=== PATIENT | male | born 1980 | race Caucasian/White ===

== ENCOUNTER 2017-01-22 01:07 | Emergency (ER) | payer OTHER ==
[2017-01-22 02:12] LABS: CARBON DIOXIDE 29.8 mmol/L (21-32); CHLORIDE SERUM 102 mmol/L (98-107); CREATININE SERUM 0.7 mg/dL (0.7-1.3); GFR1 > 60 mL/min; GLUCOSE SERUM 163 mg/dL (74-106); POTASSIUM SERUM 4.1 mmol/L (3.5-5.1); SODIUM SERUM 139 mmol/L (136-145)
[2017-01-22 02:16] LABS: ALKALINE PHOSPHATASE 158 U/L (46-116); ALT/SGPT 65 U/L (16-63); AST/SGOT 72 U/L (15-37); BILIRUBIN TOTAL 0.29 mg/dL (0.20-1.00); TOTAL PROTEIN, SERUM 7.6 g/dL (6.4-8.2)
[2017-01-22 02:19] LABS: ALBUMIN 3.1 g/dL (3.4-5.0)
[2017-01-22 02:20] LABS: BASOPHIL % 0.5 % (0-2); PLATELET COUNT 205 x10^3mcL (130-400)
[2017-01-22 02:39] LABS: CK-MB < 0.5 ng/mL (0-3.6); CREATINE KINASE 104 U/L (39-308)
[2017-01-22 03:09] VITALS: BP 127/84
== END 2017-01-22 03:09 | disposition home or self-care (01) ==
LOC: ED 01:07
PROVIDERS: Emergency Medicine
DX: F10.10 Alcohol abuse, uncomplicated (principal); M79.1 Myalgia; E78.00 Pure hypercholesterolemia, unspecified; I10 Essential (primary) hypertension; E11.9 Type 2 diabetes mellitus without complications
CPT/HCPCS: G0480; Q0092

== ENCOUNTER 2017-04-01 08:17 | Emergency (ER) | payer OTHER ==
[~2017-04-01] VITALS: Ht 180.3 cm; Wt 164.2 kg
[2017-04-01 09:28] VITALS: BP 150/95
== END 2017-04-01 09:28 | disposition home or self-care (01) ==
LOC: ED 08:17
DX: F10.20 Alcohol dependence, uncomplicated (principal); E11.9 Type 2 diabetes mellitus without complications; E78.00 Pure hypercholesterolemia, unspecified; F12.10 Cannabis abuse, uncomplicated; E66.01 Morbid (severe) obesity due to excess calories; F25.9 Schizoaffective disorder, unspecified
CPT/HCPCS: 82962

== ENCOUNTER 2017-04-17 20:28 | Emergency (ER) | payer MEDICAID ==
[2017-04-17 20:52] LABS: BASOPHIL % 0.9 % (0-2); PLATELET COUNT 327 x10^3mcL (130-400); RED CELL DISTRIBUTION WIDTH 13.9 % (11.5-14.5)
[2017-04-17 21:00] LABS: CALCIUM 8.1 mg/dL (8.5-10.1); CARBON DIOXIDE 23.5 mmol/L (21-32); CHLORIDE SERUM 100 mmol/L (98-107); CREATININE SERUM 0.6 mg/dL (0.7-1.3); GFR1 > 60 mL/min; GLUCOSE SERUM 201 mg/dL (74-106); POTASSIUM SERUM 3.4 mmol/L (3.5-5.1); SODIUM SERUM 136 mmol/L (136-145)
[2017-04-17 21:05] LABS: ALKALINE PHOSPHATASE 178 U/L (46-116); ALT/SGPT 105 U/L (16-63); AMYLASE 42 U/L (25-115); AST/SGOT 140 U/L (15-37); BILIRUBIN TOTAL 0.5 mg/dL (0.20-1.00); LIPASE 415 IU/L (73-393); TOTAL PROTEIN, SERUM 7.5 g/dL (6.4-8.2)
[2017-04-17 21:18] LABS: ALBUMIN 2.8 g/dL (3.4-5.0)
[2017-04-17 21:37] LABS: CK-MB 0.6 ng/mL (0-3.6)
[2017-04-18 01:55] VITALS: BP 133/85
== END 2017-04-18 01:50 | disposition home or self-care (01) ==
LOC: ED 20:28
PROVIDERS: Emergency Medicine
DX: F10.129 Alcohol abuse with intoxication, unspecified (principal); R07.89 Other chest pain; R11.10 Vomiting, unspecified; I10 Essential (primary) hypertension; E11.9 Type 2 diabetes mellitus without complications; F99 Mental disorder, not otherwise specified; Z79.899 Other long term (current) drug therapy
CPT/HCPCS: G0480; J3411; J3475; J3490; J7030; Q0092

== ENCOUNTER 2017-07-03 11:31 | Inpatient (IN) | payer MEDICAID ==
[~2017-07-03] VITALS: Ht 180.3 cm; Wt 136.3 kg
--- NOTE | 2017-07-03 11:43 | NUR ---
PT ON 5150 HOLD, PT'S CLOTHING & BELONGINGS BAGGED UP, LABELED, & PLACED IN RADIO ROOM. PT IN VIEW OF NSG STATION ON FULL MONITORS.
--- NOTE | 2017-07-03 11:53 | NUR ---
PT BIBA FOR C/O SI WITH A PLAN AND ETOH ABUSE. PT REPORTS EXTENSIVE PSYCHIATRIC HX THAT HE IS MEDICATED FOR. PT REPORTS HIS BELONGINGS WERE STOLEN 1 MONTH AGO, WHICH INCLUDED HIS MEDICATIONS. PT HAS NOT TAKEN MEDS X 1 MONTH. PT IS "SELF MEDICATING" WITH ETOH. AT TIME OF ASSESSMENT PT VERBALIZED SI WITH PLAN TO GO INTO TRAFFIC AND GET HIT BY A TRUCK. PT IS DEMANDING BLOOD WORK TO CHECK HIS KIDNEYS AND LIVER, DEMANDING TO BE DETOXED AND SENT TO [facility], IF NOT PT STATES "I'LL GO TO THE LIQUOR STORE AND GET EVEN MORE DRUNK." PT CHANGED INTO GOWN, CONNECTED TO FULL CARDIORESP MONITORS.
[2017-07-03 12:19] LABS: CALCIUM 7.9 mg/dL (8.5-10.1); CARBON DIOXIDE 25.2 mmol/L (21-32); CHLORIDE SERUM 103 mmol/L (98-107); CREATININE SERUM 0.6 mg/dL (0.7-1.3); GFR1 > 60 mL/min; GLUCOSE SERUM 188 mg/dL (74-106); SODIUM SERUM 139 mmol/L (136-145)
[2017-07-03 12:20] LABS: BASOPHIL % 0.5 % (0-2); PLATELET COUNT 256 x10^3mcL (130-400); RED CELL DISTRIBUTION WIDTH 13.3 % (11.5-14.5)
[2017-07-03 12:23] LABS: ALKALINE PHOSPHATASE 100 U/L (46-116); ALT/SGPT 49 U/L (16-63); AST/SGOT 69 U/L (15-37); BILIRUBIN TOTAL 0.22 mg/dL (0.20-1.00)
[2017-07-03 12:24] LABS: ALBUMIN 3.2 g/dL (3.4-5.0)
--- NOTE | 2017-07-03 13:37 | NUR ---
PT SLEEPING IN BED, CONNECTED TO CARDIORESP MONITORS, IN DIRECT OBSERVATION OF NURSING STATION. WILL CONTINUE WITH PLAN OF CARE. ATTEMPTING TO GET URINE SPECIMEN AT THIS TIME.
[2017-07-03 17:00] LABS: AMPHETAMINE QUAL UR POSITIVE (NEG <=1000)
--- NOTE | 2017-07-03 18:12 | NUR ---
PT REMAINS RESTING IN A POSITION OF COMFORT IN LOW POSITIONED BED WITH SIDE RAILS UP X 2 AND CALL LIGHT WITHIN REACH. PT REMAINS IN DIRECT OBSERVATION OF THE NURSES STATION AND IS BEING CLOSELY MONITORED.
--- NOTE | 2017-07-03 19:30 | NUR ---
REPORT GIVEN TO EVA GASPAR TO ASSUME CARE OF PT.
--- NOTE | 2017-07-03 21:00 | NUR ---
PT CALM QUIET, COOPERATIVE, RESTING NO SIGN OF DISTRESS, PT STATES HE IS SUICIDAL, AND DOES HAVE A PLAN, (PLANS TO RUN IN FRONT OF A VEHICLE) HE WISHES TO BE ADMITTED TO A PSYCH FACILITY FOR FOLLOW UP CARE, PT STATES HE HAS BEEN OFF HIS MEDICATION FOR SCHIZOPHRENIA FOR SOMETIME. AWAIT ORDERS AND PLACEMENT.
[2017-07-03 21:28] LABS: CARBON DIOXIDE 27.3 mmol/L (21-32); CHLORIDE SERUM 102 mmol/L (98-107); CREATININE SERUM 0.7 mg/dL (0.7-1.3); GFR1 > 60 mL/min; GLUCOSE SERUM 169 mg/dL (74-106); POTASSIUM SERUM 3.8 mmol/L (3.5-5.1); SODIUM SERUM 134 mmol/L (136-145)
--- NOTE | 2017-07-03 22:29 | NUR ---
REPORT RECEIVED FROM DAY SHIFT RN , PT RESTING ON BED, AWAIT NEW ORDERS AND DISPO, PT CALM QUIET COOPERATIVE AT THIS TIME IN VIEW OF RN STATION, ALL BELONGINGS REMOVED FROM ROOM PT EATING NO C/O AT THIS TIME VSS. CONT TO MONITOR
--- NOTE | 2017-07-03 23:00 | NUR ---
PT RESTING CALM COOPERATIVE VSS, TAKING ORAL HYDRATION, AMBULATED TO BR STEADY GATE BACK TO BED CONT TO MONITOR
--- NOTE | 2017-07-03 23:25 | NUR ---
PT REQUESTING MORE WATER AND ATIVAN FOR HIS ETOH WITHDRAWLS, DR SHAFFER MADE AWARE.
--- NOTE | 2017-07-03 23:30 | NUR ---
PT RETURNED FROM RESTROOM WITHOUT INCIDENCE
--- NOTE | 2017-07-03 23:31 | NUR ---
PT ESCORTED TO RESTROOOM BY EMT.
--- NOTE | 2017-07-04 00:48 | NUR ---
REPORT CALLED TO FLOOR [facility] EXT [id number] PT TRANSPORTED TO ROOM 209B IN STABLE CONDITION W/ RN AND TRANSPORTER ALL QUESTIONS ASKED AND ANSWERED.
--- NOTE | 2017-07-04 01:36 | NUR ---
REC'D PT FROM ED VIA EDUARDO ACCOMPANIED BY NURSE. PT AAOX4, SPEECH CLEAR, FOLLOWS COMMANDS. ON 515 HOLD FOR SUICIDAL IDEATION WITH ACTIVE PLAN TO "JUMP INTO TRAFFIC." PT IS HOMELESS WITH HX OF SCHIZOAFFECTIVE DISORDER. REPORTS HIS BAG WAS STOLEN THREE DAYS AGO AND HASN'T BEEN ON HIS MEDICATIONS- ZYPREXA & PAROXETINE. REPORTS DRINKING TO SELF MEDICATE. DENIES AUDITORY HALLUCINATIONS BUT REPORTS "SEEING SHADOWS SOMETIMES" AND BEING "PARANOID." C/O TENSION TELLEZ 02/14. DENIED TYLENOL. REPORTS FEELING ANXIOUS. TREMORS NOTED. ATIVAN 2MG IVP GIVEN PER ORDER. VSS. TELE 4 APPLIED READING SR. DENIES CP, DIZZINESS, OR PALPITATIONS. REPORTS BLURRED VISION. NO EDEMA NOTED. DENIES RESP DISTRESS OR SOB. BREATHING EVEN/UNLABORED ON RA. DENIES ABD PAIN, TENDERNESS, OR N/V. LAST BM TODAY NORMAL. VOIDING FREELY. AMBUALTORY. SKIN INTACT. DENIES PAIN AT THIS TIME. IV TO LAC PATENT AND INFUSING NS @ 100 ML/HR, SITE WNL. PT ORIENTED TO SURROUDNINGS AND DEVICES. CALL LIGHT WITHIN REACH, BED AT LOWEST POSITION, SITTER AT BEDSIDE. WILL CONTINUE TO MONITOR.
[2017-07-04 01:43] VITALS: BP 129/72
[2017-07-04] MEDS ORDERED: ZYPREXA15 M1 PO (01:48)
[2017-07-04] MEDS ORDERED: PAXIL10 MG PO (01:49)
--- NOTE | 2017-07-04 02:09 | NUR ---
PT RESTING IN BED WITH EYES CLOSED. SNORING. SITTER AT BEDSIDE. WILL CONTINUE TO MONITOR.
[2017-07-04 02:17] LABS: microscopic required? NO
[2017-07-04 02:46] LABS: T3 TOTAL 1.05 ng/mL
[2017-07-04 02:47] LABS: CHOLESTEROL/HDL RATIO 4.3; MAGNESIUM 2.3 mg/dL (1.8-2.4)
[2017-07-04 02:59] LABS: FREE T4 1.08 ng/dL (0.76-1.46); T4(THYROXINE) 8.2 ug/dL (4.7-13.3)
[2017-07-04 03:06] LABS: AMPHETAMINE QUAL UR POSITIVE (NEG <=1000); urine erythrocyte NEGATIVE (NEGATIVE)
--- NOTE | 2017-07-04 03:40 | NUR ---
CALLED PHARMACY TO HAVE ZYPREXA VERIFIED. REPORTED THAT MAX DOSE OF ZYPREXA IS 20 MG/DAY. ORDERED DOSE IS [address] JOHNSON MADE AWARE. STATED SHE WILL CHANGE THE DOSE. NO CHANGES IN ORDERS AT THIS TIME.
[2017-07-04 03:55] VITALS: BP 119/74
[2017-07-04 06:51] LABS: BASOPHIL % 0.5 % (0-2); PLATELET COUNT 184 x10^3mcL (130-400); RED CELL DISTRIBUTION WIDTH 13.4 % (11.5-14.5)
--- NOTE | 2017-07-04 07:30 | NUR ---
PT AWAKE AND ALERT X3. DENIES AUDITORY OR VISUAL HALLUCINATIONS. COOPERATIVE. DENIES SUICIDAL IDEATION AT THIS TIME. ANSWERS QUESTIONS APPROPRIATELY. TEMP 98.1. TELE #4 SINUS RHYTHM RATE 80. RESP 18 EVEN. BREATH SOUNDS CLEAR. NO COUGH OR SOB. PULSE OX 96% RA. ABD SOFT, BOWEL TONES PRESENT. VOIDING QS. NO EDEMA. PULSES PRESENT. SCD IN PLACE. IV PATENT LAC INFUSING NORMAL SALINE 100CC/HR. ON 5150. PREPARED FOODS ASSOCIATE AT BEDSIDE. IV CONVERTED TO SALINE LOCK. PT ASSISTED TO WHEELCHAIR. TAKEN DOWN FOR CT HEAD. PREPARED FOODS ASSOCIATE IN ATTENDANCE WITH PT TO XRAY.
--- NOTE | 2017-07-04 07:40 | NUR ---
PT RETURNED TO ROOM. IVF RESUMED. ATE BREAKFAST. ICT HELP DESK TECHNICIAN AT BEDSIDE.
[2017-07-04 08:30] VITALS: BP 138/87
[2017-07-04 08:41] LABS: CALCIUM 7.9 mg/dL (8.5-10.1); CARBON DIOXIDE 29.4 mmol/L (21-32); CHLORIDE SERUM 101 mmol/L (98-107); CREATININE SERUM 0.6 mg/dL (0.7-1.3); GFR1 > 60 mL/min; GLUCOSE SERUM 137 mg/dL (74-106); POTASSIUM SERUM 3.9 mmol/L (3.5-5.1); SODIUM SERUM 136 mmol/L (136-145)
--- NOTE | 2017-07-04 08:45 | NUR ---
DR JOE AND MEDICAL TEAM IN ON ROUNDS. CHARGE AND PRIMARY NURSE PRESENT. DISCUSSED [address] SANTAMARIA TO SEE PT. PT REPORTS "FEELING SHAKEY." WILL MEDICATE ORDERED.
--- NOTE | 2017-07-04 09:15 | NUR ---
MED WITH ATIVAN 2MG IVP ORDERED.
--- NOTE | 2017-07-04 09:30 | NUR ---
PT SLEEPING. NO DISTRESS. DR BLANKENSHIP IN TO SEE PT. NPO AT THIS TIME FOR ULTRASOUND OF ABD. CONTINUE TO MONITOR FOR SAFETY.
--- NOTE | 2017-07-04 12:30 | NUR ---
MATTHEW WITH INDUSTRIAL GAS FITTER HELPER IN TO SPEAK WITH PT AND DISCUSS OPTIONS FOR CARE AFTER HOSPITALIZATION. DR SANTAMARIA HERE. REMAINS ON 5150 AT THIS TIME. REMAINS NPO FOR ABD ULTRASOUND.
--- NOTE | 2017-07-04 14:00 | NUR ---
PT SLEEPING. NO DISTRESS. PO ATIVAN HELD AT THIS TIME.
[2017-07-04 14:15] VITALS: BP 143/89
--- NOTE | 2017-07-04 16:00 | NUR ---
EIR=340BV. NO RISS COVERAGE. SNACK PROVIDED. ABD ULTRASOUND COMPLETED. DR SANTAMARIA IN TO SPEAK WITH PT.
--- NOTE | 2017-07-04 17:00 | NUR ---
PT AWAKE, C/O ANXIETY. MED WITH ATIVAN 1MG PO ORDERED. CALL LIGHT IN REACH. LANGUAGE TUTOR AT BEDSIDE. CONTINUES ON 5149.
[2017-07-04 17:23] VITALS: BP 140/87
--- NOTE | 2017-07-04 19:10 | NUR ---
REPORT WITH BEATRICE GASPARBUSINESS OFFICE TECHNICIANCORROSION ENGINEER. PT SLEEPING. NO DISTRESS. IV PATENT. EXCEPTIONAL CHILDREN TEACHER ASSISTANT AT BEDSIDE. 5150 MAINTAINED.
--- NOTE | 2017-07-04 19:24 | NUR ---
PT SEEN, ASLEEP BUT EASILY AROUSABLE, ALERT AND ORIENTED, DENIES HEADACHE OR DIZZINESS, BREATHING EVEN AND UNLABORED, NO SOB, LUNG SOUNDS CLEAR, ON ROOM AIR WITH NO RESP DISTRESS NOTED, IVF INFUSING WELL, PULSES PALPABLE, NO EDEMA NOTED, SCD TO BLE, AMBULATORY WITH STEADY GAIT, ABD ROUND AND SOFT WITH ACTIVE BS, NO BM AT THIS TIME, VOIDING FREELY, PT ON 5150 HOLD, VOICING SUICIDAL IDEATION AT TIMES, SITTER AT BEDSIDE, NO DISTRESS NOTED, WILL KEEP TO MONITOR.
--- NOTE | 2017-07-04 21:51 | NUR ---
PT REFUSED LAB DRAW TONIGHT FOR ALCOHOL LEVEL, MADE DR JOHNSON AWARE, NEXT ALCOHOL LEVEL SCHEDULED IN AM.
[2017-07-04 22:03] VITALS: BP 140/80
--- NOTE | 2017-07-05 05:13 | NUR ---
PT ASLEEP BUT EASILY AROUSABLE, SLEPT MOST OF NIGHT, IVF INFUSING WELL, MORNING BLOOD SUGAR-150 MG/DL WITH NO RISS, CALM AT THIS TIME, STILL VOICING SUICIDAL IDEATION AT TIMES, SITTER AT BEDSIDE, NO DISTRESS NOTED, WILL KEEP TO MONITOR.
[2017-07-05 05:27] VITALS: BP 125/69
--- NOTE | 2017-07-05 07:20 | NUR ---
PT RECEIVED DURING CHANGE OF SHIFT, ASLEEP BUT AROUSABLE, VOICES SUICIDAL IDEATION, TELE 4, NSR, PULSES PRESENT, NO EDEMA, LUNGS CTA ON RA, BREATHING EVEN AND UNLABORED, BOWEL SOUNDS ACTIVE, USES URINAL, AMBULATORY, SKIN WARM/DRY/INTACT, NO INDICATION OF PAIN, IV TO LAC INFUSING NS AT 100ML/HR, CALL LIGHT WITHIN REACH, APPLICATION ARCHITECT MANAGER AT BEDSIDE, WILL CONTINUE TO MONITOR.
[2017-07-05 07:30] LABS: CALCIUM 8.3 mg/dL (8.5-10.1); CARBON DIOXIDE 29.2 mmol/L (21-32); CHLORIDE SERUM 101 mmol/L (98-107); CREATININE SERUM 0.6 mg/dL (0.7-1.3); GFR1 > 60 mL/min; GLUCOSE SERUM 130 mg/dL (74-106); POTASSIUM SERUM 3.8 mmol/L (3.5-5.1); SODIUM SERUM 138 mmol/L (136-145)
--- NOTE | 2017-07-05 08:15 | NUR ---
PT REFUSED COLACE, DENIES SOB, DENIES PAIN, CALL LIGHT WITHIN REACH, STAFF MEMBER AT BEDSIDE, WILL CONTINUE TO MONITOR.
--- NOTE | 2017-07-05 09:10 | NUR ---
PT ASLEEP, NO INDICATION OF PAIN, BREATHING EVEN AND UNLABORED, STAFF MEMBER AT BEDSIDE, CALL LIGHT WITHIN REACH, WILL CONTINUE TO MONITOR.
[2017-07-05 09:14] VITALS: BP 133/87
[2017-07-05 09:53] VITALS: BP 119/65
--- NOTE | 2017-07-05 10:04 | NUR ---
PT ASLEEP, NO INDICATION OF PAIN, BREATHING EVEN AND UNLABORED, PROCESSOR GRAIN AT BEDSIDE, WILL CONTINUE TO MONITOR.
--- NOTE | 2017-07-05 12:15 | NUR ---
PT AROUSED FROM SLEEP, DENIES SOB, DENIES PAIN, CALL LIGHT WITHIN REACH, STAFF MEMBER AT BEDSIDE, WILL CONTINUE TO MONITOR.
--- NOTE | 2017-07-05 13:03 | NUR ---
PT ASLEEP, NO INDICATION OF PAIN, BREATHING EVEN AND UNLABORED, CALL LIGHT WITHIN REACH, STAFF MEMBER AT BEDSIDE, WILL CONTINUE TO MONITOR.
--- NOTE | 2017-07-05 14:28 | NUR ---
PT ASLEEP, NO INDICATION OF PAIN, BREATHING EVEN AND UNLABORED, STAFF MEMBER AT BEDSIDE, WILL CONTINUE TO MONITOR.
--- NOTE | 2017-07-05 15:04 | NUR ---
PT ASLEEP, NO INDICATION OF PAIN, BREATHING EVEN AND UNLABORED, CALL LIGHT WITHIN REACH, WILL CONTINUE TO MONITOR.
--- NOTE | 2017-07-05 16:25 | NUR ---
PT AROUSED FROM SLEEP, BS 120 NO COVERAGED NEEDED, DENIES SOB, DENIES PAIN, STAFF MEMBER AT BEDSIDE, CALL LIGHT WITHIN REACH, WILL CONTINUE TO MONTIOR.
[2017-07-05 17:14] VITALS: BP 128/81
--- NOTE | 2017-07-05 17:15 | NUR ---
PT DENIES SOB, DENIES PAIN, CALL LIGHT WITHIN REACH, WELL SITE DRILLING ENGINEER AT BEDSIDE, WILL CONTINUE TO MONITOR.
--- NOTE | 2017-07-05 18:04 | NUR ---
PT DENIES SOB, DENIES PAIN, STAFF MEMBER AT BEDSIDE TO ASSIST, CALL LIGHT WITHIN REACH, WILL ENDORSE PT TO NEXT SHIFT.
[2017-07-05 21:32] VITALS: BP 129/84
[2017-07-06 05:36] VITALS: BP 123/77
--- NOTE | 2017-07-06 06:06 | NUR ---
PT ASLEEP BUT EASILY AROUSABLE, SLEPT MOST OF NIGHT, MORNING BLOOD SUGAR-121 MG/DL WITH NO RISS, STILL VOICING SUICIDAL IDEATION AT TIMES, SITTER AT BEDSIDE, NO DISTRESS NOTED, WILL KEEP TO MONITOR.
[2017-07-06 06:09] LABS: BASOPHIL % 0.4 % (0-2); PLATELET COUNT 192 x10^3mcL (130-400); RED CELL DISTRIBUTION WIDTH 12.7 % (11.5-14.5)
--- NOTE | 2017-07-06 07:39 | NUR ---
RECEIVED PT IN BED, A/A/O X 4, CALM, COOPERATIVE. STATES THAT HE STILL HAS SUICIDAL IDEATIONS, AND THAT HE PLANS TO JUMP INTO ONCOMING TRAFFIC TO KILL HIMSELF; REMINDED HIM THAT HE IS SAFE HERE, AND TO CALL US AT ANYTIME FOR ANY HELP HE MAY NEED; SITTER BY BEDSIDE. HEART SOUNDS S1/S2, NO CHEST PAIN OR DISCOMFORT. HECTOR RADIAL AND PEDAL PULSES PRESENT, NO EDEMA, CAP REFILL < 3 SECS, SCD IN PLACE. HECTOR LUNGS CLEAR, CHEST RISING EVENLY, SPO2 96%. ABD SOFT, ROUND, NON-TENDER, NORMOACTIVE BOWEL SOUNDS X 4 QUADS, LAST BM 07/04/17. VOIDS FREELY, NO DYSURIA. AMBULATES WITHOUT GAIT OR BALANCE IMPAIRMENT. SKIN INTACT. DENIES PAIN AT THIS TIME. IV SITE AT [facility], RUNNING NS 100 ML/HR. BED IN LOW POSITION, SIDE RAILS UP X 2, CALL LIGHT WITHIN REACH. WILL CONTINUE TO MONITOR.
--- NOTE | 2017-07-06 08:57 | NUR ---
DR JOE, RESIDENTS, CHARGE NURSE, AND ASSIGNED NURSE CAME IN TO SEE PT; MD DISCUSSED CARE PLAN FOR PT TODAY; ALL QUESTIONS WERE ANSWERED; PT VERBALIZED UNDERSTANDING.
[2017-07-06 10:33] VITALS: BP 141/91
--- NOTE | 2017-07-06 10:43 | NUR ---
PT IN BED, RESTING COMFORTABLY, SITTER BY BEDSIDE. NO RESPIRATORY DISTRESS, PAIN, OR DISCOMFORT NOTED. WILL CONTINUE TO MONITOR.
[2017-07-06 11:17] VITALS: BP 108/62
--- NOTE | 2017-07-06 14:13 | NUR ---
PT IN BED, ASLEEP, SITTER BY BEDSIDE. NO RESPIRATORY DISTRESS, PAIN, OR DISCOMFORT NOTED. WILL CONTINUE TO MONITOR.
--- NOTE | 2017-07-06 15:51 | NUR ---
Initial Nutrition Assessment Dx: 5150, Suicidal ideation PMHx: Alcohol abuse and Schizoaffective disorder PSHx:None Labs: (07/05)BH,Cr:0.6L (07/05) Ca:8.3L, (07/03) LDL:124H, T bili:69H, A1C:6.9H Meds: Colace, Folic acid, Glucophage, Humulin, Phoslo, Prilosec, NS IV, Seroquel, Theragran, Vitamin B1, Zofran Diet:CCHO PO Intake: (07/04) B:100% D:100% (07/05) B:100% L:100% D:100% (07/06) B:100% Ht: 71in, 6'1" Wt: 326#, 148.32kg BMI:45.6kg/m2 (obseity, class III) IBW: 184#, 84kg %IBW: 177% UBW:320# per pt Age:36 y/o male Food Allergies:NKFA Skin:intact Hernan:21 Edema:None GI: active bowel sounds Last BM:07/05 Pt is a homeless male who was brought in by paramedics on a 5150 hold and was admitted with toxic encephalopathy secondary to alcohol intoxication, per H&P. Per progress note 07/06, US of abdomen showed Hepatosplenomegaly and fatty infiltration of the liver. Per bed huddle this morning, pt reamins on a 5150 hold and is awaiting a bed at [facility]. During visit, observed pt laying in bed eating lunch. Pt reports to having a good appetite with no c/o N/V/D/C. Pt states he eats junk food and knows he needs to eat healthier and to stop drinking. Pt says he plans on trying to exercise again. Pt declined nutrition education. Problem with: N:No V: No D: No C:No Problems with: Chewing: No Swallowing: No Current appetite: Good Recent wt change:+6# %wt change:-1.88% Vitamin/Supplement use:No Special diet at home:Pt admits to eating junk food Physical activity:No Education: Pt declined nutrition education Estimated Nutritional Needs Based on adjusted body weight 100kg Energy: 2500-3000kcal/d (25-30kcal/kg for adult maintenance) Protein: 80-100g/d (0.8-1.0g/kg for adult maintenance) Fluid:2500-3000ml/day (1 ml/kcal) or per doctor Nutrition Diagnosis 1. Obesity related to overconsumption of calories and sedentary lifestule as evidenced by BMI:45.6kg/m2 and 177% of IBW. 2. Altered nutrition labs related to endocrine dysfunction as evidenced by A1c:6.9 Intervention 1.Recommend continue with current [facility] diet. Monitor/Evaluate Goal: PO intake at least 75% of estimated needs Monitor: PO intake, Labs, GI function F/U in 7 days as low risk:07/13
--- NOTE | 2017-07-06 15:52 | NUR ---
1.Recommend continue with current [facility] diet.
--- NOTE | 2017-07-06 17:40 | NUR ---
PT IN BED, ASLEEP. NO RESPIRATORY DISTRESS, PAIN, OR DISCOMFORT NOTED. WILL ENDORSE TO NOC SHIFT.
[2017-07-06 18:02] VITALS: BP 116/76
--- NOTE | 2017-07-06 19:40 | NUR ---
PT RESTING IN BED WITH SITTER AT BEDSIDE. MEDSURG PATIENT, MO C/O CHEST PAIN AT THIS TIME. RESPIRATIONS EVEN AND UNLABORED, CTA BILAT. NO C/O SOB, PT ON ROOM AIR. PT STATES HE DOES SMOKE CIGARETTES AND DRINKS HEAVILY. SHOWED HIS HANDS WERE SHAKING SLIGHTLY. PT STATES THIS OCCURS WHEN WITHDRAWLING FROM ALCOHOL. PT DENIES HALLUCINATIONS AND NAUSEA. BOWEL SOUNDS PRESENTS X4 QUADRANTS, ABD ROUND AND NONDISTENDED. HEP LOCK TO LAC, DENIES PAIN TO SITE AT THIS TIME AND SITE IS PATENT. PT STATES HE DOES THINK ABOUT KILLING HIMSELF D/T NOT DRINKING AND BEING STUCK IN THE HOSPITAL. PT STATES THAT HE WILL BE BETTER WHEN TRANSFERRED TO PSYCH FACILITY THAT HE IS USE TO. PT C/O TOOTHACHE PAIN, WILL MEDICATE PER ORDER. BED IN LOWEST POSITION, CALL LIGHT WITH SITTER, WILL CONTINUE TO MONITOR.
[2017-07-06 21:00] VITALS: BP 109/63
--- NOTE | 2017-07-06 21:25 | NUR ---
PT RESTING IN BED WITH SITTING AT BEDSIDE. MEDSURG PATIENT, NO C/O CHEST PAIN AT THIS TIME. RESPIRATIONS EVEN AND UNLABORED. NO C/O SOB, ROOM AIR, PT STATES HE IS A SMOKER. PT STATES HE DRINKS ALOT, SHOWED HIS HANDS WERE SHAKING SLIGHTLY. STATES THIS FEELING OCCURS WHEN WITHDRAWLING FROM ALCOHOL. HEP LOCK TO LAC. DENIES PAIN AT THIS TIME AND REMAINS PATENT. PT STATES HE DOES THINK ABOUT KILLING SELF D/T NOT HAVING DRANK IN A WHILE AND BEING STUCK IN THE HOSPITAL. PT STATES THAT HE WILL BE BETTER WHEN TRANSFERRED TO PSYCH FACILITY. C/O TOOTHACHE, WILL MEDICATE PER ORDER. BED IN LOWEST POSITION, WILL CONTINUE TO MONITOR.
--- NOTE | 2017-07-06 22:40 | NUR ---
PT SLEEPING IN BED, SITTER AT BEDSIDE. RESPIRATIONS EVEN AND UNLABORED. CALL LIGHT WITHIN REACH, BED IN LOWEST POSITION. WILL CONTINUE TO MONITOR.
--- NOTE | 2017-07-06 22:55 | NUR ---
PT MEDICATED WITH TYLENOL 650MG PO FOR TOOTHACHE PAIN, PT STATED PAIN WAS 7/10 PRIOR TO MEDICATION. UPON REASSESSMENT, PT WAS SLEEP IN BED. NO SIGNS OF FACIAL GRIMACING. PT WOKE UP BREIFLY, AND DID NOT STATE ANY PAIN WAS PRESENT. WILL CONTINUE TO MONITOR.
--- NOTE | 2017-07-07 02:00 | NUR ---
PT SLEEPING IN BED WITH FEW INTERRUPTIONS, SITTER AT BEDSIDE PER 510/50 HOLD. RESPIRATIONS EVEN AND UNLABORED. BED IN LOWEST POSITIONS, SIDE RAILS UP X2, CALL LIGHT NEAR SITTER, WILL CONTINUE TO MONITOR.
--- NOTE | 2017-07-07 05:01 | NUR ---
PT SLEEPING IN BED, MORNING LABS WERE DRAWN, PT WAS EASY TO AROUSE AND A&OX4. PT STATED TO PICCOLOIST HE FEELS HE IS PROBABLY READY TO GO HOME. RESPIRATIONS EVEN AND UNLABORED, NO C/O PAIN AT THIS TIME. BED IN LOWEST POSITION, CALL LIGHT NEAR SITTER, WILL CONTINUE TO MONITOR.
[2017-07-07 05:18] VITALS: BP 111/70
[2017-07-07 06:17] LABS: BASOPHIL % 0.6 % (0-2); PLATELET COUNT 209 x10^3mcL (130-400)
[2017-07-07 06:32] LABS: CALCIUM 8.8 mg/dL (8.5-10.1); CHLORIDE SERUM 100 mmol/L (98-107); CREATININE SERUM 0.7 mg/dL (0.7-1.3); GFR1 > 60 mL/min; GLUCOSE SERUM 114 mg/dL (74-106); MAGNESIUM 2.2 mg/dL (1.8-2.4); PHOSPHOROUS 5.3 mg/dL (2.5-4.9); POTASSIUM SERUM 3.8 mmol/L (3.5-5.1); SODIUM SERUM 137 mmol/L (136-145)
--- NOTE | 2017-07-07 07:42 | NUR ---
RECEIVED PT IN BED, A/A/O X 4, CALM, COOPERATIVE; PT STATES THAT HE STILL HAS SUICIDAL IDEATIONS, AND STILL THINKS ABOUT JUMPING INTO TRAFFIC TO KILL HIMSELF. HEART SOUNDS S1/S2, DENIES CHEST PAIN OR DISCOMFORT. HECTOR RADIAL AND PEDAL PULSES PRESENT, NO EDEMA, CAP REFILL < 3 SECS, SCD IN PLACE. HECTOR LUNGS CLEAR, CHEST RISING EVENLY, ON R/A, SPO2 96%. ABD SOFT, ROUND, NON-TENDER, NORMOACTIVE BOWEL SOUNDS X 4 QUADS. VOIDS FREELY, NO DYSURIA. AMBULATES WITHOUT GAIT OR BALANCE IMPAIRMENT. SKIN INTACT. DENIES PAIN AT THIS TIME. IV SITE AT [facility], SALINE-LOCKED. SIDE RAILS UP X 2, BED IN LOW POSITION, CALL LIGHT WITHIN REACH. WILL CONTINUE TO MONITOR.
--- NOTE | 2017-07-07 09:36 | NUR ---
DR EVANS, RESIDENTS, CHARGE NURSE, AND ASSIGNED NURSE CAME IN TO SEE PT; MD DISCUSSED CARE PLAN FOR PT TODAY; ALL QUESTIONS WERE ANSWERED; PT VERBALIZED UNDERSTANDING.
[2017-07-07 10:08] VITALS: BP 118/71
--- NOTE | 2017-07-07 10:53 | NUR ---
PT IN BED, RESTING COMFORTABLY. NO RESPIRATORY DISTRESS, PAIN, OR DISCOMFORT NOTED. WILL CONTINUE TO MONITOR.
--- NOTE | 2017-07-07 13:00 | NUR ---
PT IN BED, RESTING COMFORTABLY, SITTER BY BEDSIDE. NO RESPIRATORY DISTRESS, PAIN, OR DISCOMFORT NOTED. WILL CONTINUE TO MONITOR.
--- NOTE | 2017-07-07 15:00 | NUR ---
PT IN BED, WATCHING TV, SITTER BY BEDSIDE. NO RESPIRATORY DISTRESS, PAIN, OR DISCOMFORT NOTED. WILL CONTINUE TO MONITOR.
[2017-07-07 17:05] VITALS: BP 120/83
--- NOTE | 2017-07-07 17:45 | NUR ---
PT IN BED, RESTING COMFORTABLY. NO RESPIRATORY DISTRESS, PAIN, OR DISCOMFORT NOTED. WILL ENDORSE TO NOC SHIFT.
--- NOTE | 2017-07-07 19:45 | NUR ---
RECEIVED REPORT FROM DAY SHIFT RN. PT RESTING IN BED COMFORTABLY. PT REQUESTING TYLENOL FOR TOOTHACHE. WILL MEDICATE PER ORDER. IV ON LAC, SALINE LOCK. PT DENIES HAVING THOUGHTS OF HARMING SELF OR OTHERS AT THIS TIME. SAFETY PRECAUTIONS IN PLACE. CLOSE MONITORING.
[2017-07-07 21:00] VITALS: BP 117/68
[2017-07-08 05:27] VITALS: BP 107/64
--- NOTE | 2017-07-08 06:22 | NUR ---
PT SLEPT WELL DURING SHIFT. NO C/O PAIN AT THIS TIME. NO DISTRESS NOTED. SAFETY MEASURES MAINTAINED. CALL LIGHT WITHIN REACH. SITTER AT BEDSIDE. WILL ENDORSE CONTINUITY OF CARE TO ONCOMING RN.
--- NOTE | 2017-07-08 07:30 | NUR ---
PT RECEIVED AND SEEN. PATIENT APPEARS CALM. AAOX3. PATIENT IS MED SURG PATIENT, NO TELE. SCDS IN PLACE. RESPIRATIONS EVEN AND UNLABORED ON ROOM AIR. CTA. BS ACTIVE X4. PATIENT IS AMBULATORY. PT STATES HE HAD A TOOTHACHE THIS MORNING AND HE WAS GIVEN TYLENOL, REFUSES ADDITIONAL INTERVENTIONS AT THIS TIME. IV IN LAC IS PATENT, WNL. PATIENT DENIES THOUGHTS OF WANTING TO HURT HIMSELF. PATIENT STATES THAT HE FEELS MUCH BETTER. SITTER IN ROOM FOR SAFETY. CALL LIGHT WITHIN REACH. WILL CONTINUE TO MONITOR.
[2017-07-08 07:44] LABS: CALCIUM 8.6 mg/dL (8.5-10.1); CARBON DIOXIDE 28.6 mmol/L (21-32); CHLORIDE SERUM 101 mmol/L (98-107); CREATININE SERUM 0.7 mg/dL (0.7-1.3); GFR1 > 60 mL/min; GLUCOSE SERUM 102 mg/dL (74-106); SODIUM SERUM 137 mmol/L (136-145)
[2017-07-08 08:47] VITALS: BP 113/76
--- NOTE | 2017-07-08 14:20 | NUR ---
PATIENT IS WATCHING FOOTBALL CURRENTLY. NO SIGNS OF ACUTE DISTRESS ARE PRESENT. RESPIRATIONS EVEN AND UNLABORED. PATIENT STATES THAT HE FEELS READY TO GO HOME. PT ASKED TO NOTIFY THE RESIDENT AND ASK IF HE IS ALMOST READY FOR DISCHARGE. RESIDENT HAS BEEN NOTIFIED AT THIS TIME. WILL MONITOR FOR NEW ORDERS. CALL LIGHT WITHIN REACH. ALL SAFETY MEASURES IN PLACE.
--- NOTE | 2017-07-08 15:58 | NUR ---
PT STATES THAT HE WISHES TO LEAVE AGAINST MEDICAL ADVICE. NOTIFIED DR PATTERSON TO SPEAK WITH PATIENT REGARDING LEAVING AGAINST MEDICAL ADVICE. PATIENT AGREED TO WAIT FOR DOCTOR TO SPEAK TO HIM. WILL CONTINUE TO MONITOR.
--- NOTE | 2017-07-08 16:08 | NUR ---
DR PATTERSON SPOKE TO PATIENT REGARDING THE RISKS AND BENEFITS OF LEAVING AGAINST MEDICAL ADVICE. PATIENT VERBALIZED THAT HE UNDERSTANDS THE RISKS OF LEAVING AMA, AND THAT HE UNDERSTANDS THAT THE RISKS INCLUDE . PATIENT VERBALIZED THAT HE STILL WOULD LIKE TO LEAVE. AT THIS TIME THE PATIENT IS AAOX4. APPEARS CALM.
--- NOTE | 2017-07-08 16:20 | NUR ---
PATIENT IV CATHETER WAS REMOVED. CATHETER WAS INTACT AT TIME OF REMOVAL. IV SITE COVERED WITH STERILE GAUZE DRESSING AND TAPE. PRESSURE APPLIED FOR TWO MINUTES, NO BLEEDING NOTED. PATIENT REMOVED ALL OF HIS BELONGINGS FROM THE ROOM. PATIENT VERBALIZED THAT HE REMOVED ALL BELONGINGS. PATIENT WAS ESCORTED OUT OF THE HOSPITAL PREMISES BY PRIMARY NURSE BY FOOT. PATIENT GAIT WAS STEADY AND BALANCED.
== END 2017-07-08 16:30 | disposition left against medical advice (07) | DRG 750 ==
LOC: ED 11:31 → DU 23:49 → MU 07-05 07:06
PROVIDERS: Emergency Medicine; Family Medicine Sports Medicine; ADMIT Family Medicine
DX: F25.1 Schizoaffective disorder, depressive type (principal); G92 Toxic encephalopathy; D68.69 Other thrombophilia; Z68.42 Body mass index [BMI] 45.0-49.9, adult; E83.41 Hypermagnesemia; R45.851 Suicidal ideations; E11.65 Type 2 diabetes mellitus with hyperglycemia; E83.39 Other disorders of phosphorus metabolism; Z59.0 Homelessness; F15.10 Other stimulant abuse, uncomplicated; F12.10 Cannabis abuse, uncomplicated; F10.229 Alcohol dependence with intoxication, unspecified; F17.210 Nicotine dependence, cigarettes, uncomplicated; A60.01 Herpesviral infection of penis
CPT/HCPCS: 82962; 83880; 84439; G0480; J2060; J7030; Q0092

== ENCOUNTER 2017-10-14 20:08 | Inpatient (IN) | payer MEDICAID ==
[~2017-10-14] VITALS: Ht 180.3 cm; Wt 137.0 kg
[~2017-10-14 20:08] MED LIST: PAXIL10 MG PO; ZYPREXA15 M1 PO
[2017-10-14 20:40] LABS: BASOPHIL % 1.6 % (0-2); PLATELET COUNT 452 x10^3mcL (130-400); RED CELL DISTRIBUTION WIDTH 14.1 % (11.5-14.5)
[2017-10-14 20:44] LABS: CALCIUM 7.8 mg/dL (8.5-10.1); CARBON DIOXIDE 26.8 mmol/L (21-32); CHLORIDE SERUM 98 mmol/L (98-107); CREATININE SERUM 0.9 mg/dL (0.7-1.3); GFR1 > 60 mL/min; GLUCOSE SERUM 131 mg/dL (74-106); SODIUM SERUM 138 mmol/L (136-145)
[2017-10-14 20:54] LABS: ALBUMIN 3.5 g/dL (3.4-5.0); ALKALINE PHOSPHATASE 137 U/L (46-116); ALT/SGPT 65 U/L (16-63); AST/SGOT 58 U/L (15-37); BILIRUBIN TOTAL 0.2 mg/dL (0.20-1.00); TOTAL PROTEIN, SERUM 8.2 g/dL (6.4-8.2)
[2017-10-14 23:53] LABS: AMPHETAMINE QUAL UR POSITIVE (NEG <=1000)
[2017-10-15] MEDS ORDERED: SEROQUEL200 MG PO (01:08)
[2017-10-15] MEDS ORDERED: PAROXETINE HCL20 M1 PO (01:09)
[2017-10-15 01:38] LABS: MAGNESIUM 2.1 mg/dL (1.8-2.4); PHOSPHOROUS 4.4 mg/dL (2.5-4.9)
[2017-10-15 01:40] LABS: T3 TOTAL 0.99 ng/mL
[2017-10-15 01:41] LABS: FREE T4 0.96 ng/dL (0.76-1.46); FREE THYROXINE INDEX 2.6 ug/dL (1.4-4.5)
[2017-10-15 01:54] VITALS: BP 106/57
[2017-10-15 02:02] LABS: CHOLESTEROL/HDL RATIO 3.3
[2017-10-15 05:34] VITALS: BP 102/55
[2017-10-15] MEDS ORDERED: BENAZEPRIL HYDR20 M1 PO (07:19)
[2017-10-15] MEDS ORDERED: METFORMIN HYDR500 M1 PO (07:20)
[2017-10-15 08:35] VITALS: BP 126/77
[2017-10-15 12:05] VITALS: Ht 180.3 cm; Wt 137.0 kg
[2017-10-15 13:50] VITALS: BP 121/80
[2017-10-15 15:52] LABS: microscopic required? NO
[2017-10-15 16:41] LABS: UA SPECIFIC GRAVITY 1.015 (1.005-1.035); urine erythrocyte NEGATIVE (NEGATIVE)
[2017-10-15 17:50] VITALS: BP 141/65
[2017-10-15 21:17] VITALS: BP 137/71
[2017-10-16 05:26] VITALS: BP 123/75
[2017-10-16 07:52] LABS: CARBON DIOXIDE 28.8 mmol/L (21-32); CHLORIDE SERUM 103 mmol/L (98-107); CREATININE SERUM 0.7 mg/dL (0.7-1.3); GFR1 > 60 mL/min; GLUCOSE SERUM 99 mg/dL (74-106); MAGNESIUM 1.8 mg/dL (1.8-2.4); PHOSPHOROUS 4.2 mg/dL (2.5-4.9); POTASSIUM SERUM 3.6 mmol/L (3.5-5.1); SODIUM SERUM 139 mmol/L (136-145)
[2017-10-16 07:57] LABS: BASOPHIL % 0.4 % (0-2); PLATELET COUNT 224 x10^3mcL (130-400); RED CELL DISTRIBUTION WIDTH 13.8 % (11.5-14.5)
[2017-10-16 09:56] VITALS: BP 121/74
[2017-10-16 13:58] VITALS: BP 136/88
[2017-10-16] MEDS ORDERED: BENAZEPRIL HYDR20 M1 PO (14:03)
[2017-10-16] MEDS ORDERED: ZYPREXA15 M1 PO (14:07)
[2017-10-16] MEDS ORDERED: PAROXETINE HCL20 M1 PO (14:07)
[2017-10-16] MEDS ORDERED: SEROQUEL200 MG PO (14:08)
[2017-10-16] MEDS ORDERED: METFORMIN HYDR500 M1 PO (14:08)
[2017-10-16] MEDS ORDERED: LIPI20 PO (14:09)
[2017-10-16] MEDS ORDERED: LIB25 PO (14:11)
[2017-10-16] MEDS ORDERED: BG FS (14:12)
[2017-10-16] MEDS ORDERED: OSCD PO (14:13)
[2017-10-16] MEDS ORDERED: FOL1 PO (14:16)
[2017-10-16] MEDS ORDERED: THI100 PO (14:17)
[2017-10-16] MEDS ORDERED: ACCU-CHEK1 EACH MC (14:21)
[2017-10-16 14:26] VITALS: BP 136/88
== END 2017-10-16 15:05 | disposition home or self-care (01) | DRG 816 ==
LOC: ED 20:08 → DU 10-15 00:47
PROVIDERS: Emergency Medicine; Family Medicine
DX: T51.0X2A Toxic effect of ethanol, intentional self-harm, initial encounter (principal); G92 Toxic encephalopathy; D68.69 Other thrombophilia; R45.851 Suicidal ideations; E11.65 Type 2 diabetes mellitus with hyperglycemia; E11.59 Type 2 diabetes mellitus with other circulatory complications; F31.5 Bipolar disorder, current episode depressed, severe, with psychotic features; F10.239 Alcohol dependence with withdrawal, unspecified; Z68.41 Body mass index [BMI] 40.0-44.9, adult; I10 Essential (primary) hypertension; E78.5 Hyperlipidemia, unspecified; F10.229 Alcohol dependence with intoxication, unspecified; F15.10 Other stimulant abuse, uncomplicated; F17.210 Nicotine dependence, cigarettes, uncomplicated; E66.9 Obesity, unspecified; Z59.0 Homelessness; Y90.8 Blood alcohol level of 240 mg/100 ml or more; Y92.89 Other specified places as the place of occurrence of the external cause
CPT/HCPCS: 82962; 83880; 84439; G0480; J1200; J1630; J2060; J7030

== ENCOUNTER 2020-08-24 13:20 | Emergency (ER) | payer OTHER ==
[~2020-08-24] VITALS: Ht 180.3 cm; Wt 113.4 kg
[~2020-08-24 13:20] MED LIST changes: +ACCU-CHEK1 EACH MC; +BENAZEPRIL HYDR20 M1 PO; +BG FS; +FOL1 PO; +LIB25 PO; +LIPI20 PO; +METFORMIN HYDR500 M1 PO; +OSCD PO; +PAROXETINE HCL20 M1 PO; +SEROQUEL200 MG PO; +THI100 PO
[2020-08-24 14:42] VITALS: Ht 180.3 cm; Wt 113.4 kg
[2020-08-24 17:20] VITALS: BP 120/74
== END 2020-08-24 18:23 | disposition home or self-care (01) ==
LOC: ED 13:20
DX: S02.2XXA Fracture of nasal bones, initial encounter for closed fracture (principal); S06.0X0A Concussion without loss of consciousness, initial encounter; S00.83XA Contusion of other part of head, initial encounter; I10 Essential (primary) hypertension; E11.9 Type 2 diabetes mellitus without complications; E78.00 Pure hypercholesterolemia, unspecified; Z59.0 Homelessness; Y04.8XXA Assault by other bodily force, initial encounter; Y93.89 Activity, other specified; Y92.89 Other specified places as the place of occurrence of the external cause; Y99.8 Other external cause status

== ENCOUNTER 2020-09-28 18:43 | Emergency (ER) | payer OTHER | END 2020-09-28 19:39 | disposition left against medical advice (07) | LOC: ED 18:43 | DX: Z53.1 Procedure and treatment not carried out because of patient's decision for reasons of belief and group pressure (principal) ==

== ENCOUNTER 2020-09-28 21:35 | Emergency (ER) | payer OTHER ==
[~2020-09-28] VITALS: Ht 180.3 cm; Wt 113.4 kg
[2020-09-28 21:47] VITALS: BP 135/102; Ht 180.3 cm; Wt 113.4 kg
== END 2020-09-28 22:56 | disposition left against medical advice (07) ==
LOC: ED 21:35
DX: Z53.21 Procedure and treatment not carried out due to patient leaving prior to being seen by health care provider (principal)

== ENCOUNTER 2020-10-21 03:56 | Emergency (ER) | payer OTHER ==
[~2020-10-21] VITALS: Ht 180.3 cm; Wt 117.9 kg
[2020-10-21 04:06] VITALS: Ht 180.3 cm; Wt 117.9 kg
[2020-10-21 06:31] VITALS: BP 111/67
== END 2020-10-21 06:31 | disposition home or self-care (01) ==
LOC: ED 03:56
DX: S50.02XA Contusion of left elbow, initial encounter (principal); L03.116 Cellulitis of left lower limb; F10.129 Alcohol abuse with intoxication, unspecified; E66.01 Morbid (severe) obesity due to excess calories; R60.9 Edema, unspecified; I10 Essential (primary) hypertension; E11.9 Type 2 diabetes mellitus without complications; W22.8XXA Striking against or struck by other objects, initial encounter; Y93.89 Activity, other specified; Y92.89 Other specified places as the place of occurrence of the external cause; Y99.8 Other external cause status